=== PATIENT | male | born 1965 | race Caucasian/White ===

== ENCOUNTER 2016-07-28 11:43 | Emergency (ER) | payer SELFPAY ==
[~2016-07-28] VITALS: Ht 185.4 cm; Wt 72.6 kg
[~2016-07-28 11:43] MED LIST: ATROVENT0.5 MG/2.5 INH; CYMBALTA30 MG PO; JANUMET 50-1,01 EACH PO; LANTUS100 UNIT/1 SUBCUT; NEURONTIN300 MG PO; NORCO 325-5 MG1 TAB PO; PROVENTIL HFA6.7 GM INH; TRAZODONE HCL100 MG PO
== END 2016-07-28 12:22 | disposition short-term general hospital (02) ==
LOC: ER 11:43
PROC: 0H97XZZ Drainage of Abdomen Skin, External Approach (ICD-10-PCS; principal; 2016-07-28)
DX: L02.214 Cutaneous abscess of groin (principal)
CPT/HCPCS: J0696